=== PATIENT | male | born 1995 | race Caucasian/White ===

== ENCOUNTER 2017-07-06 00:01 | Emergency (ER) | payer MEDICAID ==
[~2017-07-06] VITALS: Ht 172.7 cm; Wt 64.4 kg
[2017-07-06 00:06] VITALS: Ht 172.7 cm; Wt 64.4 kg
[2017-07-06 01:06] VITALS: BP 133/85
== END 2017-07-06 01:06 | disposition home or self-care (01) ==
LOC: ED 00:01
DX: H65.91 Unspecified nonsuppurative otitis media, right ear (principal)

== ENCOUNTER 2017-09-08 22:50 | Emergency (ER) | payer MEDICAID ==
[~2017-09-08] VITALS: Ht 175.3 cm; Wt 63.5 kg
[2017-09-09 02:18] LABS: UA SPECIFIC GRAVITY 1.025 (1.005-1.035); microscopic required? YES; urine erythrocyte 1+ (NEGATIVE)
[2017-09-09 03:50] VITALS: BP 113/50
== END 2017-09-09 04:04 | disposition left against medical advice (07) ==
LOC: ED 22:50
PROVIDERS: Emergency Medicine
DX: N50.812 Left testicular pain (principal); N50.811 Right testicular pain; I86.1 Scrotal varices; R10.9 Unspecified abdominal pain
CPT/HCPCS: 87491; 87591; J1885; Q0092